=== PATIENT | male | born 1975 | race Caucasian/White ===

== ENCOUNTER 2018-01-15 16:46 | Emergency (ER) | payer OTHER ==
[~2018-01-15] VITALS: Ht 177.8 cm; Wt 81.7 kg
[~2018-01-15 16:46] MED LIST: Cyclobenzaprine5 MG PO
[2018-01-15 17:23] LABS: Source, Urine Clean Catch
[2018-01-15 17:28] LABS: Appearance, Urine Clear (Clear); Bilirubin, Urine Neg (Neg); Blood, Urine 5+ (Neg); Color, Urine Yellow (P-Yellow); Glucose Qualitative, Urine Neg (Neg); Ketones, Urine Neg (Neg); Leukocyte Esterase, Urine 1+ (Neg); Nitrite, Urine Neg (Neg); Protein, Urine 2+ (Neg); Urobilinogen, Urine NORM (Normal); pH, Urine 6.5 (5.0-8.0)
[2018-01-15 17:35] LABS: Mucus Mod (0-Heavy)
[2018-01-15 17:36] LABS: Red Blood Cells, Urine 50-100 /hpf (0-2)
[2018-01-15 17:37] LABS: Bacteria Few /hpf; Squamous Epithelial Cells Rare /hpf (Few)
== END 2018-01-15 18:40 | disposition home or self-care (01) ==
LOC: ER 16:46
PROVIDERS: Emergency Medicine
DX: N13.2 Hydronephrosis with renal and ureteral calculous obstruction (principal)
CPT/HCPCS: 74176; 81001; 87086; 99284

== ENCOUNTER → 2020-01-05 | Outpatient (CLI) | payer OTHER | END | disposition home or self-care (01) | LOC: LAB SHORT 18:25 → LAB EV 18:25 | DX: L03.012 Cellulitis of left finger (principal) | CPT/HCPCS: 87070; 87075; 87077; 87147; 87186; 87205 ==

== ENCOUNTER → 2020-02-19 | Outpatient (CLI) | payer OTHER | LOC: LAB SHORT 17:44 → LAB 17:44 | DX: Z48.817 Encounter for surgical aftercare following surgery on the skin and subcutaneous tissue (principal) | CPT/HCPCS: 87070; 87077; 87147; 87186; 87205 ==

== ENCOUNTER 2023-07-13 06:15 | Day surgery (SDC) | payer OTHER ==
[~2023-07-13] VITALS: Ht 177.8 cm; Wt 95.5 kg
[2023-07-13] MEDS ORDERED: CYCLOBENZAPRINE5 MG PO (07:28)
[2023-07-13] MEDS ORDERED: IBUP200 PO (07:29)
[2023-07-13] MEDS ORDERED: ACET500 PO (07:30)
--- NOTE | 2023-07-13 08:02 | NUR ---
07/13/23 0802 Nanci Hou CO2 TANK CHANGED YESTERDAY'S WAS EMPTY. NEED TO GET O RING FOR REGULATOR TO BEGIN TO START THE CASE. [facility] HERE TO GET O RING. CASE DELAYED IN START TIME DUE TO THIS.
[2023-07-13 13:10] VITALS: BP 97/72
== END 2023-07-13 08:56 | disposition home or self-care (01) ==
LOC: ORSCSDS 06:15
PROVIDERS: Internal Medicine Gastroenterology
PROC: 0DBN8ZX Excision of Sigmoid Colon, Via Natural or Artificial Opening Endoscopic, Diagnostic (ICD-10-PCS; principal; 2023-07-13 08:00)
DX: K62.89 Other specified diseases of anus and rectum (principal); K62.5 Hemorrhage of anus and rectum; K57.30 Diverticulosis of large intestine without perforation or abscess without bleeding; K64.8 Other hemorrhoids; K63.5 Polyp of colon; K59.09 Other constipation; F17.210 Nicotine dependence, cigarettes, uncomplicated; Z79.899 Other long term (current) drug therapy
CPT/HCPCS: 88305; J2704; J7120

== ENCOUNTER 2024-01-04 12:46 | Day surgery (SDC) | payer OTHER ==
[~2024-01-04] VITALS: Ht 177.8 cm; Wt 101.4 kg
[~2024-01-04 12:46] MED LIST changes: +ACET500 PO; +COLACE100 MG PO; +CYCLOBENZAPRINE5 MG PO; +IBUP200 PO; +Lactated Ringer's 1,000 ML IV ONE; +[UNRECOGNIZED DRUG - OTHER] PR; +propofoL 50 ML IV ONE
[2024-01-04] MEDS ORDERED: ACET325 (13:04)
[2024-01-04] MEDS ORDERED: Lactated Ringer's 1,000 ML IV ONE (13:10)
[2024-01-04 14:07] VITALS: BP 113/80
== END 2024-01-04 14:09 | disposition home or self-care (01) ==
LOC: ORSCSDS 12:46
PROVIDERS: Specialist
PROC: 0DB68ZX Excision of Stomach, Via Natural or Artificial Opening Endoscopic, Diagnostic (ICD-10-PCS; principal; 2024-01-04 14:15)
PROC: 0DB98ZX Excision of Duodenum, Via Natural or Artificial Opening Endoscopic, Diagnostic (ICD-10-PCS; principal; 2024-01-04 14:15)
DX: R10.13 Epigastric pain (principal); F17.210 Nicotine dependence, cigarettes, uncomplicated
CPT/HCPCS: 88305; 88342; J2704; J7120